=== PATIENT | male | born 1950 | race Caucasian/White ===

== ENCOUNTER 2018-03-19 19:38 | Emergency (ER) | payer MEDICARE, OTHER ==
[2018-03-19 19:43] VITALS: TEMP 98.2
[2018-03-19] MEDS ORDERED: OMNICEF 300MG300 MG PO (20:57)
[2018-03-19] MEDS ORDERED: DOXYCYCLINE HY100 MG PO (20:57)
[2018-03-19] MEDS ORDERED: ASPIRIN 32325 MG/TAB PO (20:59)
[2018-03-19] MEDS ORDERED: HYZAAR 12.5 MG-1 TAB PO (20:59)
[2018-03-19] MEDS ORDERED: PLAVIX 75MG TAB75 MG PO (20:59)
[2018-03-19] MEDS ORDERED: KAPSPARGO SPRIN50 MG PO (20:59)
[2018-03-19] MEDS ORDERED: CRESTOR20 MG PO (21:00)
[2018-03-19 21:22] VITALS: BP 145/73; PULSE 66
== END 2018-03-19 21:33 | disposition home or self-care (01) ==
LOC: COL.ER 19:38
DX: L03.113 Cellulitis of right upper limb (principal); I25.2 Old myocardial infarction; Z79.82 Long term (current) use of aspirin; Z79.02 Long term (current) use of antithrombotics/antiplatelets